=== PATIENT | female | born 1980 | race African-American/Black ===

== ENCOUNTER 2023-05-17 11:12 | Emergency (ER) | payer SELFPAY ==
[2023-05-17] MEDS ORDERED: Ibuprofen 200 MG TAB ONE (12:13)
== END 2023-05-17 12:51 | disposition home or self-care (01) ==
LOC: NAV ERS 11:12
DX: U07.1 COVID-19 (principal); I10 Essential (primary) hypertension; Z79.899 Other long term (current) drug therapy
CPT/HCPCS: 87635; 87804; 99283

== ENCOUNTER 2023-09-18 14:52 | Emergency (ER) | payer OTHER, SELFPAY ==
[2023-09-18] MEDS ORDERED: Amlodipine 5 MG TAB ONE (15:39)
[2023-09-18] MEDS ORDERED: Ketorolac Tromethamine 30 MG (1 mL) VIAL ONE (15:40)
[2023-09-18] MEDS ORDERED: Losartan 50 MG TAB ONE (15:40)
[2023-09-18 15:48] LABS: #Basophils 0.1 thou/uL (0.0-0.2); #Lymphocytes 1.3 thou/uL (1.20-3.40); #Monocytes 0.7 thou/uL (0.11-0.59); #Neutrophils 7.2 thou/uL (1.40-6.50); %Basophils 1.1 % (0.0-1.0); %Eosinophils 0.4 % (0.0-10.0); %Lymphocytes 14.3 % (21.0-51.0); %Monocytes 7.1 % (0.0-10.0); %Neutrophils 77.1 % (42.0-75.0); Hematocrit 40.4 % (36.0-47.0); Hemoglobin 12.8 g/dL (12.0-16.0); Mean Corpuscular HGB CONC 31.7 g/dL (32.0-36.0); Mean Platelet Volume 7.1 fL (7.4-10.4); Platelet Count 263 10x3/uL (130-400); RBC Distribution Width 13.9 % (11.5-14.5); Red Blood Cell (RBC) Count 4.76 mill/uL (4.20-5.40); White Blood Cell (WBC) Count 9.3 10x3/uL (4.8-10.8)
[2023-09-18 16:01] LABS: ALT (SGPT) 24 U/L (8-55); AST (SGOT) 20 U/L (5-34); Albumin 4.4 g/dL (3.5-5.0); Alkaline Phosphatase 86 U/L (40-110); Anion Gap 16 mmol/L (10-20); BUN (Urea Nitrogen) 20 mg/dL (7.0-18.7); Calc. Creatinine Clearance 0 mL/min (70-130); Calcium 10.1 mg/dL (7.8-10.44); Carbon Dioxide 20 mmol/L (22-29); Chloride 106 mmol/L (98-107); Estimated GFR 38; Globulin 3.6 g/dL (2.4-3.5); Glucose 109 mg/dL (70-105); Potassium 4.2 mmol/L (3.5-5.1); Sodium 138 mmol/L (136-145)
[2023-09-18] MEDS ORDERED: Cephalexin 250 MG CAP ONE (16:25)
[2023-09-18] MEDS ORDERED: Doxycycline 100 MG CAP ONE (16:25)
== END 2023-09-18 16:43 | disposition home or self-care (01) ==
LOC: NAV ERS 14:52
DX: L08.9 Local infection of the skin and subcutaneous tissue, unspecified (principal); I10 Essential (primary) hypertension; Z79.899 Other long term (current) drug therapy
CPT/HCPCS: 80053; 83605; 85025; 96374; J1885

== ENCOUNTER 2023-12-25 14:23 | Emergency (ER) | payer OTHER, SELFPAY ==
[2023-12-25] MEDS ORDERED: Ibuprofen 800 MG TAB ONE (14:51)
== END 2023-12-25 16:03 | disposition home or self-care (01) ==
LOC: NAV ERS 14:23
DX: S63.617A Unspecified sprain of left little finger, initial encounter (principal); I10 Essential (primary) hypertension; X58.XXXA Exposure to other specified factors, initial encounter